=== PATIENT | female | born 1995 | race American Indian/Alaskan Native ===

== ENCOUNTER 2016-10-06 20:52 | Emergency (ER) | payer SELFPAY ==
[2016-10-06 21:54] VITALS: BP 112/82
[2016-10-06 21:57] LABS: Basophils % (Auto) 0.7 % (0.0-1.8); Eosinophils % (Auto) 5.5 % (0.0-4.3); Hematocrit 35.4 % (30.3-42.9); Hemoglobin 11.5 gm/dl (10.1-14.3); Mean Corpuscular HGB Conc 32 % (30-34); Mean Corpuscular Hemoglobin 26 pg (28-32); Mean Corpuscular Volume 82 fl (79-97); Platelet Count 359 K/mm3 (140-440); Red Blood Count 4.34 M/mm3 (3.65-5.03); Red Cell Distribution Width 15.5 % (13.2-15.2); White Blood Count 4.5 K/mm3 (4.5-11.0)
[2016-10-06 22:05] LABS: Anion Gap 16 mmol/L; Blood Urea Nitrogen 12 mg/dL (7-17); Carbon Dioxide 24 mmol/L (22-30); Chloride 103.3 mmol/L (98-107); Glucose 88 mg/dL (65-100); Sodium 139 mmol/L (137-145)
[2016-10-06 22:06] LABS: INR 1.06 (0.87-1.13)
[2016-10-06 22:07] LABS: Partial Thromboplastin Time 34.5 Sec. (24.2-36.6)
== END 2016-10-07 03:30 | disposition left against medical advice (07) ==
LOC: ED 20:52
DX: R07.89 Other chest pain (principal); Z53.21 Procedure and treatment not carried out due to patient leaving prior to being seen by health care provider
CPT/HCPCS: 36415; 80048; 84484; 84703; 85025; 85610; 85730; 93005; 93010